=== PATIENT | male | born 1995 | race Caucasian/White ===

== ENCOUNTER 2024-12-21 06:49 | Emergency (ER) | payer MEDICAID ==
[~2024-12-21] VITALS: Ht 175.3 cm; Wt 86.2 kg
[2024-12-21] MEDS ORDERED: ONDANSETRON HCL/PF 4 MG/2 ML VIAL ONE (07:18)
[2024-12-21] MEDS ORDERED: KETOROLAC TROMETHAMINE 15 MG/ML VIAL ONE (07:18)
[2024-12-21] MEDS ORDERED: MAG HYDROX/AL HYDROX/SIMETH 30 ML UDC ONE (07:18)
[2024-12-21] MEDS ORDERED: LIDOCAINE VISCOUS 2% UD 15 ML UDC ONE (07:18)
[2024-12-21 07:27] LABS: PLATELET COUNT (AUTO) 287 K/uL (150-450); RED BLOOD CELL COUNT(AUTO) 5.77 MIL/uL (4.5-6.0); RED CELL DISTRIBUTION WIDTH 13.4 % (11.5-15.0); WHITE BLOOD COUNT (AUTO) 11.4 K/uL (4.3-11.0)
[2024-12-21] MEDS: IV LR 1000 ML 1,000 ML IV ONE (07:31)
[2024-12-21] MEDS: KETOROLAC TROMETHAMINE 15 MG/ML VIAL IV ONE (07:32)
[2024-12-21] MEDS: MAG HYDROX/AL HYDROX/SIMETH 30 ML UDC PO ONE (07:32)
[2024-12-21] MEDS: LIDOCAINE VISCOUS 2% UD 15 ML UDC MM ONE (07:32)
[2024-12-21] MEDS: ONDANSETRON HCL/PF 4 MG/2 ML VIAL IVP ONE (07:32)
[2024-12-21 07:34] LABS: ADD URINE CULTURE NO; APPEARANCE,URINE CLEAR (CLEAR); BLOOD, URINE NEGATIVE Ery/uL (NEGATIVE); LEUKOCYTE ESTERASE ,URINE NEGATIVE (NEGATIVE); NITRITE, URINE NEGATIVE (NEGATIVE); SQUAMOUS EPITHELIAL CELL,UR Few /HPF (None Seen); UGLUCOSE NEGATIVE (NEGATIVE)
[2024-12-21 07:39] LABS: ASPARTATE AMINOTRANSFERASE 17.0 U/L (15-37); CALCIUM, SERUM 9.1 mg/dL (8.5-10.1); CREATININE 0.9 mg/dL (0.6-1.3); SODIUM SERUM 139.0 mmol/L (136-145); TOTAL PROTEIN, SERUM 7.6 g/dL (6.4-8.2); UREA NITROGEN, BLOOD 7.0 mg/dL (7-18)
[2024-12-21] MEDS ORDERED: FAMO20TA80 PO (09:31)
[2024-12-21] MEDS ORDERED: SUCR1ORA6 PO (09:31)
[2024-12-21] MEDS ORDERED: ONDA4TAB11 PO (09:31)
[2024-12-21 10:07] VITALS: BP 130/79; TEMP 98.5; O2SAT 98
[2024-12-26] MEDS ORDERED: AMOX-430 PO (20:57)
[2024-12-26] MEDS ORDERED: HYDR-3972 PO (20:57)
== END 2024-12-21 10:12 | disposition home or self-care (01) ==
LOC: ER 06:53
DX: K80.20 Calculus of gallbladder without cholecystitis without obstruction (principal)
CPT/HCPCS: 99285; 96374; 76705; 96361; 96375; 85025; 80048; 83690; 80076; 81001; 36415; J1885; J2405; J7120 ×2

== ENCOUNTER 2024-12-22 06:36 | Inpatient (IN) | payer MEDICAID ==
[~2024-12-22] VITALS: Ht 188 cm; Wt 99.8 kg
[~2024-12-22 06:36] MED LIST: FAMO20TA80 PO; ONDA4TAB11 PO; SUCR1ORA6 PO
[2024-12-22] MEDS ORDERED: KETOROLAC TROMETHAMINE 15 MG/ML VIAL ONE (07:52)
[2024-12-22] MEDS ORDERED: ONDANSETRON HCL/PF 4 MG/2 ML VIAL ONE (07:52)
[2024-12-22] MEDS: ONDANSETRON HCL/PF 4 MG/2 ML VIAL IVP ONE (07:55)
[2024-12-22 07:57] LABS: PLATELET COUNT (AUTO) 282 K/uL (150-450); RED BLOOD CELL COUNT(AUTO) 5.66 MIL/uL (4.5-6.0); RED CELL DISTRIBUTION WIDTH 13.2 % (11.5-15.0); WHITE BLOOD COUNT (AUTO) 10.1 K/uL (4.3-11.0)
[2024-12-22] MEDS: KETOROLAC TROMETHAMINE 15 MG/ML VIAL IV ONE (07:57)
[2024-12-22 08:07] LABS: CALCIUM, SERUM 9.0 mg/dL (8.5-10.1); CREATININE 1.0 mg/dL (0.6-1.3); SODIUM SERUM 140.0 mmol/L (136-145); UREA NITROGEN, BLOOD 8.0 mg/dL (7-18)
[2024-12-22 08:12] LABS: ASPARTATE AMINOTRANSFERASE 18.0 U/L (15-37); TOTAL PROTEIN, SERUM 7.6 g/dL (6.4-8.2)
[2024-12-22] MEDS ORDERED: IOHEXOL-300 100 ML VIAL IV ONE (09:08)
[2024-12-22] MEDS ORDERED: CT SWABBABLE VALVE TRANS SET 1 EA INFUS.SET MC ONE (09:09)
[2024-12-22] MEDS ORDERED: IV NS 0.9% 250 ML IV ONE (09:09)
[2024-12-22] MEDS ORDERED: ACETAMINOPHEN 325 MG TABLET PO PRN (13:30)
[2024-12-22] MEDS: ONDANSETRON HCL/PF 4 MG/2 ML VIAL IVP PRN (14:00)
[2024-12-22] MEDS: IV D5/0.45 NACL 1,000 ML IV PRN (14:01)
[2024-12-22] MEDS: HYDROMORPHONE 1 MG/1 ML DISP.SYRIN IV PRN (14:05)
[2024-12-22 20:00] VITALS: BP 143/103; TEMP 99.5; O2SAT 95
[2024-12-22] MEDS: PANTOPRAZOLE 40 MG VIAL IV SCH (23:16)
[2024-12-22 23:41] VITALS: TEMP 98.8
[2024-12-23] VITALS (9 sets, daily range): BP systolic 120–136; BP diastolic 73–97; TEMP 97.2–98.1; O2SAT 97–98
[2024-12-23 06:42] LABS: PLATELET COUNT (AUTO) 280 K/uL (150-450); RED BLOOD CELL COUNT(AUTO) 5.40 MIL/uL (4.5-6.0); RED CELL DISTRIBUTION WIDTH 13.3 % (11.5-15.0); WHITE BLOOD COUNT (AUTO) 8.0 K/uL (4.3-11.0)
[2024-12-23 07:09] LABS: ASPARTATE AMINOTRANSFERASE 16.0 U/L (15-37); CALCIUM, SERUM 8.9 mg/dL (8.5-10.1); CREATININE 1.0 mg/dL (0.6-1.3); PHOSPHORUS 4.3 mg/dL (2.5-4.9); SODIUM SERUM 141.0 mmol/L (136-145); TOTAL PROTEIN, SERUM 7.4 g/dL (6.4-8.2); UREA NITROGEN, BLOOD 8.0 mg/dL (7-18)
[2024-12-23] MEDS ORDERED: PANTOPRAZOLE 40 MG VIAL IV SCH (09:00)
[2024-12-23] MEDS ORDERED: ANESTHESIA TRAY IN PYXIS 1 EA TRAY MC ONE (15:35)
[2024-12-23] MEDS ORDERED: LIDOCAINE 1%-EPI 1:100,000 20 ML VIAL ONE (15:35)
[2024-12-23] MEDS ORDERED: BUPIVACAINE 0.5 % PF 150 MG/30 ML VIAL ONE (15:35)
[2024-12-23] MEDS ORDERED: FENTANYL PF 250MCG/5ML AMPUL ONE (16:51)
[2024-12-23] MEDS ORDERED: MIDAZOLAM HCL 2 MG/2ML VIAL ONE (16:52)
[2024-12-23] MEDS ORDERED: ROCURONIUM BROMIDE 50 MG/5 ML ONE ×2 (16:52→18:50)
[2024-12-23] MEDS ORDERED: SUCCINYLCHOLINE CHLORIDE 20 MG/ML VIAL ONE (16:53)
[2024-12-23] MEDS ORDERED: HYDROMORPHONE 1 MG/1 ML DISP.SYRIN IV PRN (18:00)
[2024-12-23] MEDS ORDERED: oxyCODONE IR immediate release 5 MG TABLET PO PRN (18:00)
[2024-12-23] MEDS ORDERED: CELLULOSE,OXIDIZED 1 EA PACK MC ONE (18:07)
[2024-12-23] MEDS ORDERED: HEMOSTATIC MATRIX 8 ML 1 EACH PAD MC ONE (19:29)
[2024-12-23] MEDS ORDERED: ONDANSETRON HCL/PF 4 MG/2 ML VIAL ONE (20:32)
[2024-12-23] MEDS: HYDROMORPHONE 1 MG/1 ML DISP.SYRIN IV ONE (23:04)
[2024-12-24] MEDS: ACETAMINOPHEN 325 MG TABLET PO SCH
[2024-12-24 00:15] VITALS: BP 124/64; TEMP 97.5; O2SAT 97
[2024-12-24 07:02] LABS: PLATELET COUNT (AUTO) 274 K/uL (150-450); RED BLOOD CELL COUNT(AUTO) 5.26 MIL/uL (4.5-6.0); RED CELL DISTRIBUTION WIDTH 12.9 % (11.5-15.0); WHITE BLOOD COUNT (AUTO) 12.4 K/uL (4.3-11.0)
[2024-12-24 07:19] LABS: ASPARTATE AMINOTRANSFERASE 66.0 U/L (15-37); CALCIUM, SERUM 8.8 mg/dL (8.5-10.1); CREATININE 0.9 mg/dL (0.6-1.3); SODIUM SERUM 140.0 mmol/L (136-145); TOTAL PROTEIN, SERUM 7.3 g/dL (6.4-8.2); UREA NITROGEN, BLOOD 10.0 mg/dL (7-18)
[2024-12-24 08:00] VITALS: BP 133/77; TEMP 97.9; O2SAT 96
[2024-12-24] MEDS: oxyCODONE IR immediate release 5 MG TABLET PO PRN (08:59)
[2024-12-24] MEDS ORDERED: HYDROMORPHONE 1 MG/1 ML DISP.SYRIN IV PRN (09:00)
[2024-12-24] MEDS: PIPERACILLIN /TAZOBACTAM 3.375 G in IV D5W 50 ML IV SCH (11:20)
[2024-12-24] MEDS: FAMOTIDINE/PF INJ 20 MG/2 ML VIAL IV ONE (11:42)
[2024-12-24] MEDS: HYDROMORPHONE 1 MG/1 ML DISP.SYRIN IV PRN (12:35)
[2024-12-24 16:00] VITALS: BP 132/87; TEMP 97.9; O2SAT 96
[2024-12-24 18:21] LABS: PLATELET COUNT (AUTO) 304 K/uL (150-450); RED BLOOD CELL COUNT(AUTO) 5.24 MIL/uL (4.5-6.0); RED CELL DISTRIBUTION WIDTH 13.0 % (11.5-15.0); WHITE BLOOD COUNT (AUTO) 12.3 K/uL (4.3-11.0)
[2024-12-24 20:00] VITALS: BP 115/77; TEMP 97.5; O2SAT 96
[2024-12-25 06:55] LABS: PLATELET COUNT (AUTO) 283 K/uL (150-450); RED BLOOD CELL COUNT(AUTO) 4.89 MIL/uL (4.5-6.0); RED CELL DISTRIBUTION WIDTH 13.2 % (11.5-15.0); WHITE BLOOD COUNT (AUTO) 13.7 K/uL (4.3-11.0)
[2024-12-25 07:21] LABS: ASPARTATE AMINOTRANSFERASE 29.0 U/L (15-37); CALCIUM, SERUM 8.5 mg/dL (8.5-10.1); CREATININE 0.7 mg/dL (0.6-1.3); PHOSPHORUS 3.6 mg/dL (2.5-4.9); SODIUM SERUM 140.0 mmol/L (136-145); TOTAL PROTEIN, SERUM 6.7 g/dL (6.4-8.2); UREA NITROGEN, BLOOD 7.0 mg/dL (7-18)
[2024-12-25 08:00] VITALS: BP 115/76; TEMP 97.7; O2SAT 96
[2024-12-25] MEDS ORDERED: TRAMADOL HCL 50 MG TABLET PO PRN (10:00)
[2024-12-25] MEDS: TRAMADOL HCL 50 MG TABLET PO PRN (11:31)
[2024-12-25] MEDS: PIPERACILLIN /TAZOBACTAM 3.375 G in IV D5W 100 ML IV SCH (14:34)
[2024-12-25 16:00] VITALS: BP 117/80; TEMP 97.3; O2SAT 96
[2024-12-25 20:03] VITALS: BP 117/82; TEMP 97.3; O2SAT 97
[2024-12-25] MEDS: MAGNESIUM HYDROXIDE 30 ML UDC PO PRN (21:55)
[2024-12-25] MEDS ORDERED: HYDROCODONE/APAP 5/325MG TABLET PO PRN (23:30)
[2024-12-26 07:07] LABS: PLATELET COUNT (AUTO) 261 K/uL (150-450); RED BLOOD CELL COUNT(AUTO) 4.74 MIL/uL (4.5-6.0); RED CELL DISTRIBUTION WIDTH 13.2 % (11.5-15.0); WHITE BLOOD COUNT (AUTO) 7.3 K/uL (4.3-11.0)
[2024-12-26 07:19] LABS: ASPARTATE AMINOTRANSFERASE 19.0 U/L (15-37); CALCIUM, SERUM 8.4 mg/dL (8.5-10.1); CREATININE 0.9 mg/dL (0.6-1.3); PHOSPHORUS 3.8 mg/dL (2.5-4.9); SODIUM SERUM 143.0 mmol/L (136-145); TOTAL PROTEIN, SERUM 6.3 g/dL (6.4-8.2); UREA NITROGEN, BLOOD 8.0 mg/dL (7-18)
[2024-12-26 08:41] VITALS: BP 100/78; TEMP 97.5; O2SAT 96
[2024-12-26] MEDS: SENNOSIDES/DOCUSATE SODIUM 1 TAB TABLET PO SCH (09:10)
[2024-12-26] MEDS: HYDROCODONE/APAP 5/325MG TABLET PO PRN (10:32)
[2024-12-26 16:04] VITALS: BP 110/83; TEMP 98.2; O2SAT 97
[2024-12-26 20:00] VITALS: BP 119/88; TEMP 98.1; O2SAT 97
[2024-12-26] MEDS ORDERED: HYDR-3972 PO (20:57)
[2024-12-26] MEDS ORDERED: AMOX-430 PO (20:57)
[2024-12-27 06:21] LABS: PLATELET COUNT (AUTO) 296 K/uL (150-450); RED BLOOD CELL COUNT(AUTO) 5.21 MIL/uL (4.5-6.0); RED CELL DISTRIBUTION WIDTH 13.2 % (11.5-15.0); WHITE BLOOD COUNT (AUTO) 7.3 K/uL (4.3-11.0)
[2024-12-27 06:32] LABS: ASPARTATE AMINOTRANSFERASE 13.0 U/L (15-37); CALCIUM, SERUM 8.9 mg/dL (8.5-10.1); CREATININE 0.9 mg/dL (0.6-1.3); PHOSPHORUS 3.9 mg/dL (2.5-4.9); SODIUM SERUM 143.0 mmol/L (136-145); TOTAL PROTEIN, SERUM 6.9 g/dL (6.4-8.2); UREA NITROGEN, BLOOD 7.0 mg/dL (7-18)
[2024-12-27 08:00] VITALS: BP 115/79; TEMP 98.2; O2SAT 97
[2024-12-27] MEDS ORDERED: PANTOPRAZOLE 40 MG TABLET.DR PO SCH (21:00)
== END 2024-12-27 12:30 | disposition home or self-care (01) | DRG 263 ==
LOC: ER 06:40 → MED 11:47
PROVIDERS: ADMIT Nurse Practitioner Family; ATTEND Internal Medicine
PROC: 0FT44ZZ Resection of Gallbladder, Percutaneous Endoscopic Approach (ICD-10-PCS; principal; 2024-12-22)
DX: K80.13 Calculus of gallbladder with acute and chronic cholecystitis with obstruction (principal); F17.210 Nicotine dependence, cigarettes, uncomplicated; K21.9 Gastro-esophageal reflux disease without esophagitis; K76.0 Fatty (change of) liver, not elsewhere classified; Z79.899 Other long term (current) drug therapy; L40.9 Psoriasis, unspecified; F32.A Depression, unspecified
CPT/HCPCS: 36415; 76705-TC; 78226; 80048-TC; 80053-TC; 80076-TC; 83690-TC; 83735-TC; 84100-TC; 85025-TC; 87070-TC; 87075-TC; 87081-TC; 97116-TC; 97530-TC; A4223; A6403; A9537; G0378; J0330; J0690; J1100; J1171; J1308; J1885; J2250; J2405; J2470; J2543; J2704; J2919; J3010; J3490; J7030; J7042; J7050; J7060; Q0163; Q9967